=== PATIENT | female | born 1955 | race Caucasian/White ===

== ENCOUNTER 2018-02-10 09:37 | Inpatient (IN) ==
[2018-02-10] MEDS ORDERED: Morphine Inj 4 MG/ML Vial IV.PUSH ONE ×2 (13:05→14:48)
[2018-02-10] MEDS ORDERED: Ketorolac Inj 30 MG/ML (IVP) Vial IV.PUSH ONE (13:05)
--- NOTE | 2018-02-10 13:11 | ED ---
HPI General Chief Complaint: Abdominal Pain Stated Complaint: Medical Time Seen by Provider: 02/10/18 13:05 Source: patient Mode of arrival: ambulatory Limitations: no limitations History of Present Illness HPI narrative: The patient is a 62-year-old female who presents to the emergency department via private vehicle for abdominal pain. The patient has a history of recurrent diverticulitis, was experiencing 2 episodes per year. However, the patient has had multiple episodes over the last several months. The patient is scheduled for colonoscopy with Dr. Méndez on March 01 and possible future partial colectomy by Dr. Wild in March. However, the patient notes increasing abdominal pain over the last 2 days located in left lower quadrant, rating to the suprapubic region, increasing, and associated nausea and vomiting. The patient is concerned about possible perforation and abscess. She does note subjective fever last night which is currently resolved. Last bowel movement was this morning, normal. The patient denies any dysuria, frequency, or urgency. Symptoms are moderate, exacerbated by palpation, there are no current alleviating factors. MD complaint: abdominal pain Onset (ago): day(s) Pain Consistency: constant Location: LLQ Severity: moderate Severity scale (1-10): 7 Quality: aching Radiation: suprapubic Migration to: no migration Relieving factors: nothing Exacerbating factors: nothing Context: history of similar episodes Associated symptoms: nausea, vomiting and fever Related Data Home Medications Medication Instructions Recorded Confirmed No Known Home Medications 02/10/18 02/10/18 Allergies Allergy/AdvReac Type Severity Reaction Status Date / Time No Known Allergies Allergy Verified 02/10/18 13:44 Review of Systems Except as stated in HPI: all other systems reviewed are negative Constitutional Denies fever(s) Cardiovascular Denies chest pain Gastrointestinal Reports abdominal pain, Denies diarrhea, Reports nausea and Reports vomiting Genitourinary Denies dysuria [facility] Medical History Medical History Diverticula of intestine (Acute) H/O: hysterectomy (Acute) Social History Social History Substance History: No History of Abuse Smoking Status: Never smoker How Often Do You Have a Drink Containing Alcohol: Never Recent Travel in [facility] within the Last 8 Weeks: No Recent Out of Country Travel within the Last 8 Weeks: No Exam Narrative Exam Narrative: GENERAL: Awake, alert, pleasant 62-year-old female who appears her stated age and is in no acute respiratory distress. SKIN: Focused skin assessment warm/dry. HEAD: Atraumatic. Normocephalic. EYES: No injection or drainage. ENT: No nasal bleeding or discharge. Mucous membranes pink and moist. NECK: Trachea midline. No JVD. CARDIOVASCULAR: Regular rate and rhythm. No murmur appreciated. RESPIRATORY: No accessory muscle use. Clear to auscultation. Breath sounds equal bilaterally. GASTROINTESTINAL: Abdomen soft, tender to palpation left lower quadrant and suprapubic. No guarding or rigidity. MUSCULOSKELETAL: No obvious deformities. No clubbing. No cyanosis. No edema. NEUROLOGICAL: Awake and alert. No obvious cranial nerve deficits. Motor grossly within normal limits. Normal speech. PSYCHIATRIC: Appropriate mood and affect; insight and judgment normal. Course Initial Documented Vital Signs Temperature 98.2 F 02/10/18 09:41 Pulse Rate 77 02/10/18 09:41 Respiratory Rate 17 02/10/18 09:41 Blood Pressure 138/71 02/10/18 09:41 Pulse Oximetry 98 02/10/18 09:41 Last Documented Vital Signs Temperature 98.2 F 02/10/18 09:41 Pulse Rate 77 02/10/18 09:41 Respiratory Rate 17 02/10/18 09:41 Blood Pressure 138/71 02/10/18 09:41 Pulse Oximetry 98 02/10/18 09:41 Medical Decision Making MDM Narrative Medical decision making narrative: IV was established, labs are drawn and sent, and the patient was placed on cardiac telemetry monitoring and continuous pulse oximetry monitoring. The patient was a ophthalmic tech Toradol, morphine, Zofran, and placed on IV fluids. CT of the abdomen and pelvis with IV and oral contrast was obtained to evaluate for possible diverticular abscess/perforation. The patient's white count is unremarkable. Lactic acid is normal. However, CT the abdomen and pelvis reveals diverticulitis and possible abscess measuring up to 3 cm. The patient has recurrent diverticulitis, possibility includes abscess that is never healed with returning symptoms. Therefore, the patient will be placed on IV antibiotics and admitted. The patient may benefit from evaluation from her general surgeon, Dr. Wild. The patient agrees and understands and is comfortable with this plan of care. I discussed the patient with Dr. Jones who agrees with admission. Differential Diagnosis Differential Diagnosis: Differential diagnosis includes diverticulitis, diverticular abscess, perforation, pyelonephritis, sigmoid volvulus, atypical appendicitis, nephrolithiasis, hydronephrosis. Lab Data Lab results reviewed: Yes I reviewed the patient's lab results. Lab results narrative: Laboratory evaluation is unremarkable. White count and lactic acid are normal. Result diagrams: 02/10/18 13:30 02/10/18 13:30 Lab Results 02/10/18 02/10/18 02/10/18 Range/Units 13:30 13:30 13:30 WBC 9.9 (4.0-11.0) th/mm3 RBC 4.28 (4.00-5.30) mil/mm3 Hgb 13.3 (11.6-15.3) gm/dL Hct 38.4 (35.0-46.0) % MCV 89.8 (80.0-100.0) fL MCH 31.1 (27.0-34.0) pg MCHC 34.7 (32.0-36.0) % RDW 13.9 (11.6-17.2) % Plt Count 253 (150-450) th/mm3 MPV 8.0 (7.0-11.0) fL Neut % (Auto) 66.8 (16.0-70.0) % Lymph % (Auto) 25.6 (9.0-44.0) % [place] % (Auto) 5.1 (0.0-8.0) % Eos % (Auto) 1.4 (0.0-4.0) % Baso % (Auto) 1.1 (0.0-2.0) % Neut # (Auto) 6.6 (1.8-7.7) th/mm3 Lymph # (Auto) 2.5 (1.0-4.8) th/mm3 [place] # (Auto) 0.5 (0.0-0.9) th/mm3 Eos # (Auto) 0.1 (0.0-0.4) th/mm3 Baso # (Auto) 0.1 (0.0-0.2) th/mm3 WBC Differential . Differential Comment Auto diff final Sodium 140 (136-145) meq/L Potassium 3.7 (3.5-5.1) meq/L Chloride 105 (98-107) meq/L Carbon Dioxide 30.4 (21.0-32.0) meq/L Anion Gap 5 (5-15) meq/L BUN 11 (7-18) mg/dL Creatinine 0.89 (0.50-1.00) mg/dL Estimated GFR 64 L (>89) mL/min Random Glucose 97 (74-106) mg/dL Lactic Acid 0.7 (0.4-2.0) mmol/L Calcium 8.9 (8.5-10.1) mg/dL Total Bilirubin 0.6 (0.2-1.0) mg/dL AST 28 (15-37) U/L ALT 34 (10-53) U/L Alkaline Phosphatase 143 H (45-117) U/L Total Protein 8.3 H (6.4-8.2) g/dL Albumin 3.5 (3.4-5.0) g/dL Lipase 87 (73-393) U/L Urine Color (Yellw/Straw) Urine Clarity (Clear) Urine pH (5.0-8.5) Ur Specific [place] (1.002-1.035) Urine Protein (Neg-Trace) mg/dL Urine Glucose (UA) (Negative) mg/dL Urine Ketones (Negative) mg/dL Urine Occult Blood (Negative) Urine Nitrate (Negative) Urine Bilirubin (Negative) Urine Urobilinogen (Less than 2) mg/dL Ur Leukocyte Esterase (Negative) Urine RBC (0-3) /hpf Urine WBC (0-5) /hpf Ur Squamous Epith Cells (0-5) /hpf Urine Bacteria (None) /hpf Urine Mucus (Occasional) /lpf Micro UA Comment Urine Culture Comments 02/10/18 Range/Units 14:30 WBC (4.0-11.0) th/mm3 RBC (4.00-5.30) mil/mm3 Hgb (11.6-15.3) gm/dL Hct (35.0-46.0) % MCV (80.0-100.0) fL MCH (27.0-34.0) pg MCHC (32.0-36.0) % RDW (11.6-17.2) % Plt Count (150-450) th/mm3 MPV (7.0-11.0) fL Neut % (Auto) (16.0-70.0) % Lymph % (Auto) (9.0-44.0) % [place] % (Auto) (0.0-8.0) % Eos % (Auto) (0.0-4.0) % Baso % (Auto) (0.0-2.0) % Neut # (Auto) (1.8-7.7) th/mm3 Lymph # (Auto) (1.0-4.8) th/mm3 [place] # (Auto) (0.0-0.9) th/mm3 Eos # (Auto) (0.0-0.4) th/mm3 Baso # (Auto) (0.0-0.2) th/mm3 WBC Differential Differential Comment Sodium (136-145) meq/L Potassium (3.5-5.1) meq/L Chloride (98-107) meq/L Carbon Dioxide (21.0-32.0) meq/L Anion Gap (5-15) meq/L BUN (7-18) mg/dL Creatinine (0.50-1.00) mg/dL Estimated GFR (>89) mL/min Random Glucose (74-106) mg/dL Lactic Acid (0.4-2.0) mmol/L Calcium (8.5-10.1) mg/dL Total Bilirubin (0.2-1.0) mg/dL AST (15-37) U/L ALT (10-53) U/L Alkaline Phosphatase (45-117) U/L Total Protein (6.4-8.2) g/dL Albumin (3.4-5.0) g/dL Lipase (73-393) U/L Urine Color Yellow (Yellw/Straw) Urine Clarity Hazy H (Clear) Urine pH 5.0 (5.0-8.5) Ur Specific [place] 1.020 (1.002-1.035) Urine Protein Negative (Neg-Trace) mg/dL Urine Glucose (UA) Negative (Negative) mg/dL Urine Ketones Negative (Negative) mg/dL Urine Occult Blood Negative (Negative) Urine Nitrate Negative (Negative) Urine Bilirubin Negative (Negative) Urine Urobilinogen 2.0 H (Less than 2) mg/dL Ur Leukocyte Esterase Negative (Negative) Urine RBC 7 H (0-3) /hpf Urine WBC 4 (0-5) /hpf Ur Squamous Epith Cells 10 (0-5) /hpf Urine Bacteria Rare H (None) /hpf Urine Mucus Moderate H (Occasional) /lpf Micro UA Comment Culture not ind Urine Culture Comments Culture not ind Imaging Data Radiologist's impression: Abdomen/Pelvis CT 02/10/18 13:05 CONCLUSION: Diverticulitis with possible abscess Discharge Plan Discharge Disposition Patient Disposition: 30 Still Patient Discharge Condition Condition: Stable Discharge Details Diagnosis: Diverticulitis of intestine with abscess without bleeding Physicians Team ED Provider: Ted Jaime Primary Care Provider: Christine Hare Rxs /Orders / Referrals /Forms Prescriptions: No Action No Known Home Medications RF: 0 Status ED Status: Pending Admission
[2018-02-10] MEDS ORDERED: Sod Chloride 0.9% Inj 1,000 ML IV.CONT SCH (13:15)
[2018-02-10] MEDS ORDERED: Diatrizoate Meglum/Diatrizoate Sod Liq 9 ML UDC PO ONE (13:45)
[2018-02-10 13:56] LABS: Baso # (Auto) 0.1 th/mm3 (0.0-0.2); Baso % (Auto) 1.1 % (0.0-2.0); Eos # (Auto) 0.1 th/mm3 (0.0-0.4); Eos % (Auto) 1.4 % (0.0-4.0); Hematocrit 38.4 % (35.0-46.0); Hemoglobin 13.3 gm/dL (11.6-15.3); Lymph # (Auto) 2.5 th/mm3 (1.0-4.8); Lymph % (Auto) 25.6 % (9.0-44.0); Mean Corpuscular HGB Conc 34.7 % (32.0-36.0); Mean Corpuscular Hemoglobin 31.1 pg (27.0-34.0); Mean Corpuscular Volume 89.8 fL (80.0-100.0); Mono # (Auto) 0.5 th/mm3 (0.0-0.9); Mono % (Auto) 5.1 % (0.0-8.0); Neut # (Auto) 6.6 th/mm3 (1.8-7.7); Neut % (Auto) 66.8 % (16.0-70.0); Platelet Count 253 th/mm3 (150-450); Red Blood Count 4.28 mil/mm3 (4.00-5.30); Red Cell Distribution Width 13.9 % (11.6-17.2); White Blood Count 9.9 th/mm3 (4.0-11.0)
[2018-02-10 14:13] LABS: Alanine Aminotransferase 34 U/L (10-53); Albumin 3.5 g/dL (3.4-5.0); Anion Gap 5 meq/L (5-15); Aspartate Aminotransferase 28 U/L (15-37); Blood Urea Nitrogen 11 mg/dL (7-18); Calcium 8.9 mg/dL (8.5-10.1); Carbon Dioxide 30.4 meq/L (21.0-32.0); Chloride 105 meq/L (98-107); Glomerular Filtration Rate 64 mL/min (>89); Glucose,Random 97 mg/dL (74-106); Lipase 87 U/L (73-393); Potassium 3.7 meq/L (3.5-5.1); Sodium 140 meq/L (136-145)
[2018-02-10 14:15] LABS: Alkaline Phosphatase 143 U/L (45-117); Total Protein 8.3 g/dL (6.4-8.2)
[2018-02-10 14:59] LABS: Bacteria,Urine Rare /hpf; Bilirubin,Urine Negative (Negative); Clarity,Urine Hazy (Clear); Color,Urine Yellow (Yellw/Straw); Glucose,Urine (UA) Negative (Negative); Leukocyte Esterase,Urine Negative (Negative); Mucus,Urine Moderate /lpf (Occasional); Nitrite,Urine Negative (Negative); Squamous Epithelial Cell,Urine 10 /hpf (0-5)
--- NOTE | 2018-02-10 15:23 | CT ---
EXAM DATE: 02/10/2018 3:13 PM EDT AGE/SEX: 62 years / Female INDICATIONS: History of diverticulitis, now having left lower abdomen pain for two days. CLINICAL DATA: This is the patient's initial encounter. Patient reports that signs and symptoms have been present for 2 days and indicates a pain score of 6/10. MEDICAL/SURGICAL HISTORY: Diverticulitis. None. ORAL CONTRAST: Prescribed oral contrast ingested. RADIATION DOSE: 7.04 CTDI (mGy) COMPARISON: POI, CT ABDOMEN AND PELVIS W/ CONTRAST, 12/11/2017. . TECHNIQUE: Multiple contiguous axial images were obtained through the abdomen and pelvis following b olus infusion of 95 ml Omnipaque 350 (iohexol) nonionic water-soluble contrast as a single exam dos e. Prescribed oral contrast ingested. Using automated exposure control and adjustment of the mA and/ or kV according to patient size, radiation dose was kept as low as reasonably achievable to obtain op timal diagnostic quality images. DICOM format image data is available electronically for review and comparison. FINDINGS: Lower Lungs: The visualized lower lungs are clear. Liver: The liver has a homogeneous density without space-occupying lesion. There is no dilation of th e biliary tree. The patient is status post cholecystectomy. There is mild hepatic steatosis. Spleen: Homogeneous density without enlargement. Pancreas: Unremarkable without mass or calcification. Kidneys: Normal in size and shape. No evidence of mass or hydronephrosis. Adrenal Glands: Unremarkable. Aorta: The aorta and proximal iliac vessels are grossly unremarkable without aneurysmal dilation. Bowel/Mesentery: There is focal bowel wall thickening and surrounding inflammatory change involving the proximal sigmoid colon. This extends for approximately 5 to 6 cm distance. There are multiple div erticuli in this area as well as several minute collections of gas which may be extraluminal. In rosanna tion there is a small apparent fluid collection along the inferior right side of the sigmoid colon. T his is best seen on axial image #72. This measures up to approximately 3 cm in diameter. Abdominal Wall: Intact. Retroperitoneum: No evidence of adenopathy in the retrocrural, para-aortic, or deep pelvic regions. Bladder: Contours are smooth. Reproductive Organs: No abnormal masses or calcifications seen. Inguinal: The inguinal region is unremarkable without evidence of adenopathy. Bony Structures: Unremarkable. 1. Findings characteristic of acute diverticulitis involving the proximal sigmoid colon with wall th ickening and inflammatory change. There is a adjacent fluid collection which could represent early ab scess formation. There is no wall or gas bubbles within this region. 2. Mild hepatic steatosis. 3. Status post cholecystectomy. Electronically signed by: Nghia Zimmer MD 02/10/2018 3:22 PM EDT
[2018-02-10] MEDS ORDERED: Ciprofloxacin 400 MG/200 ML 400 MG/200 ML PIGGYBACK IV.SIG ONE (15:30)
--- NOTE | 2018-02-10 16:35 | P.HPIM ---
History of Present Illness Service: [facility] Primary Care Physician: Christine Hare DO Chief Complaint: Abdominal pain History of Present Illness: 62-year-old female with a medical history significant for recurrent diverticulitis. Patient reports she used to have bouts of diverticulitis about once or twice a year. However for the past few months she has been having recurrent episodes. She has been followed by GI and previously consulted with general surgery, Dr. Wild. In fact there were plans for surgery in March. However overnight, the patient woke up in severe left lower quadrant pain with associated nausea and vomiting. She also report fevers and chills last night. CT of the abdomen was done in the emergency room consistent with diverticulitis with possible early abscess. Currently the patient reports abdominal pain is improved. Nausea have significantly improved. - Diagnosis (1) Diverticulitis of intestine with abscess without bleeding Plans for Post Hospital Care: Home Review of Systems All other systems reviewed negative except as stated in HPI PMFSH - History History Provided By: Patient - Medical History Medical History: Medical History (Last Updated 02/10/18 @ 13:52 by Rosa Maria Ramirez) Diverticula of intestine H/O: hysterectomy - Surgical History Surgical History: Surgical History (Last Updated 02/10/18 @ 17:00 by Cristina Vieira MD) History of cholecystectomy - Family History Family History: Family History (Last Updated 02/10/18 @ 17:00 by Cristina Vieira MD) Other Family history non-contributory - Tobacco History Smoking Status: Never smoker - Alcohol History How Often Do You Have a Drink Containing Alcohol: Never - Substance Use History Substance History: No History of Abuse - Travel History Recent Travel in the [facility] [place] Within the Last 8 Weeks: No Recent Travel Out of the Country Within the Last 8 Weeks: No - Immunization History Tetanus Immunization: <5 Years Medications and Allergies Active Medications: Active Medications Sodium Chloride (Ns Inj) 1,000 mls @ 125 mls/hr IV.CONT .Q8H LUIS CARLOS Stop: 02/10/18 21:14 Last Admin: 02/10/18 13:28 Dose: 125 mls/hr Lactated Ringer's (Lr 1000 Ml Inj) 1,000 mls @ 100 mls/hr IV.CONT .Q10H LUIS CARLOS Sodium Chloride (Ns Flush) 2 ml IV.FLUSH PRN PRN PRN Reason: FLUSH AFTER USING IV ACCESS Temazepam (Restoril) 15 mg PO HS PRN PRN Reason: INSOMNIA Allergies Allergy/AdvReac Type Severity Reaction Status Date / Time No Known Allergies Allergy Verified 02/10/18 13:44 Home Medications Medication Instructions Recorded Confirmed Type No Known Home Medications 02/10/18 02/10/18 History Exam Vital signs: Vital Signs 02/10/18 09:41 Temperature 98.2 F Pulse Rate 77 Respiratory Rate 17 Blood Pressure 138/71 Pulse Oximetry 98 Intake & Output 02/09/18 02/10/18 02/10/18 18:59 06:59 18:59 Weight 72.575 kg Narrative: CONSTITUTIONAL/GENERAL: This is an adequately nourished patient, in no apparent distress. Vital signs reviewed SKIN: No jaundice, rashes, or concerning lesions. Not diaphoretic. HEAD: Atraumatic. Normocephalic. EYES: Pupils equal and round and reactive. Extra ocular motions are intact. No scleral icterus. No injection or drainage. ENT: Hearing grossly normal. Nose without drainage. Throat without visible erythema, exudates, masses, or lesions. NECK: Trachea midline. Neck is supple, non-tender. No palpable thyroid enlargement or nodularity. CARDIOVASCULAR: Normal rate and regular rhythm without murmurs, gallops, or rubs. No JVD. Peripheral pulses 2+ and symmetric. RESPIRATORY/CHEST: Symmetric, unlabored respirations. Breath sounds equal and clear to auscultation bilaterally. No wheezes, crackles, rales, or rhonchi. GASTROINTESTINAL: Abdomen soft, non-distended. Mild tenderness to deep palpation more notable on the left lower quadrant. MUSCULOSKELETAL: Extremities without clubbing, cyanosis, or edema. No joint tenderness or effusion noted. No calf tenderness. No mottling or clubbing. NEUROLOGICAL: Awake and alert. Motor and sensory grossly within normal limits. Follows commands. Move all extremities spontaneously. No focal deficits. PSYCHIATRIC: No obvious mood problems. No apparent hallucinations or other psychotic thought process. Results - Labs CBC & Chem 7: 02/10/18 13:30 02/10/18 13:30 Labs: Short CBC 02/10/18 Range/Units 13:30 WBC 9.9 (4.0-11.0) th/mm3 Hgb 13.3 (11.6-15.3) gm/dL Hct 38.4 (35.0-46.0) % Plt Count 253 (150-450) th/mm3 BMP 02/10/18 13:30 Sodium 140 Potassium 3.7 Chloride 105 Carbon Dioxide 30.4 BUN 11 Creatinine 0.89 Calcium 8.9 Liver Function 02/10/18 Range/Units 13:30 Total Bilirubin 0.6 (0.2-1.0) mg/dL AST 28 (15-37) U/L ALT 34 (10-53) U/L Alkaline Phosphatase 143 H (45-117) U/L Albumin 3.5 (3.4-5.0) g/dL Urine 02/10/18 Range/Units 14:30 Urine Color Yellow (Yellw/Straw) Urine Clarity Hazy H (Clear) Urine pH 5.0 (5.0-8.5) Ur Specific [place] 1.020 (1.002-1.035) Urine Protein Negative (Neg-Trace) mg/dL Urine Glucose (UA) Negative (Negative) mg/dL - Imaging Impressions Abdomen/Pelvis CT 02/10/18 13:05 CONCLUSION: Caprini VTE Risk Assessment Caprini VTE Risk Assessment: No/Low Risk (score <= 1) Caprini Risk Assessment Model: Point Value = 1 Point Value = 2 Point Value = 3 Point Value = 5 Age 41-60 Minor surgery BMI > 25 kg/m2 Swollen legs Varicose veins or History of unexplained or recurrent spontaneous Oral contraceptives or hormone replacement Sepsis (< 1 month) Serious lung disease, including pneumonia (< 1 month) Abnormal pulmonary function Acute myocardial infarction Congestive heart failure (< 1 month) History of inflammatory bowel disease Medical patient at bed rest Age 61-74 Arthroscopic surgery Major open surgery (> 45 min) Laparoscopic surgery (> 45 min) Malignancy Confined to bed (> 72 hours) Immobilizing plaster cast Central venous access Age >= 75 History of VTE Family history of VTE Factor V Leiden Prothrombin [id number] Lupus anticoagulant Anticardiolipin antibodies Elevated serum homocysteine Heparin-induced thrombocytopenia Other congenital or acquired thrombophilia Stroke (< 1 month) Elective arthroplasty Hip, pelvis, or leg fracture Acute spinal cord injury (< 1 month) Prophylaxis Regimen: Total Risk Factor Score Risk Level Prophylaxis Regimen 0-1 Low Early ambulation 2 Moderate Order ONE of the following: *Sequential Compression Device (SCD) *Heparin 5000 units SQ BID 3-4 Higher Order ONE of the following medications: *Heparin 5000 units SQ TID *Enoxaparin/Lovenox 40 mg SQ daily (WT < 150 kg, CrCl > 30 mL/min) *Enoxaparin/Lovenox 30 mg SQ daily (WT < 150 kg, CrCl > 10-29 mL/min) *Enoxaparin/Lovenox 30 mg SQ BID (WT < 150 kg, CrCl > 30 mL/min) AND/OR *Sequential Compression Device (SCD) 5 or more Highest Order ONE of the following medications: *Heparin 5000 units SQ TID (Preferred with Epidurals) *Enoxaparin/Lovenox 40 mg SQ daily (WT < 150 kg, CrCl > 30 mL/min) *Enoxaparin/Lovenox 30 mg SQ daily (WT < 150 kg, CrCl > 10-29 mL/min) *Enoxaparin/Lovenox 30 mg SQ BID (WT < 150 kg, CrCl > 30 mL/min) AND *Sequential Compression Device (SCD) Assessment and Plan - Assessment (1) Diverticulitis of intestine with abscess without bleeding Code(s): K57.80 - Diverticulitis of intestine, part unspecified, with perforation and abscess without bleeding Status: Acute - Plan 62-year-old female with recurrent diverticulitis. Symptoms are becoming more frequent and more severe. Recurrent diverticulitis with possible early abscess on abdominal CT: - Continue IV antibiotics with ciprofloxacin and Flagyl. - Supportive care with IV fluid. Pain control. Keep n.p.o. - Consult general surgery. Patient known to Dr. Wild. DVT PPx: SCDs. (1) Diverticulitis of intestine with abscess without bleeding Qualifiers: Diverticulitis site: large intestine Qualified Code(s): K57.20 - Diverticulitis of large intestine with perforation and abscess without bleeding
[2018-02-10] MEDS ORDERED: Temazepam 15 MG Capsule PO PRN (21:00)
[2018-02-11] MEDS ORDERED: Acetaminophen 325 MG Tablet PO ONE (00:10)
[2018-02-11] MEDS: Ciprofloxacin 400 MG/200 ML 400 MG/200 ML PIGGYBACK IV.SIG SCH ×2 (04:01→16:02)
[2018-02-11 08:03] LABS: Hemoglobin 11.6 gm/dL (11.6-15.3); Mean Corpuscular HGB Conc 34.1 % (32.0-36.0); Mean Corpuscular Hemoglobin 30.8 pg (27.0-34.0); Mean Corpuscular Volume 90.4 fL (80.0-100.0); Platelet Count 207 th/mm3 (150-450); Red Blood Count 3.76 mil/mm3 (4.00-5.30); Red Cell Distribution Width 13.6 % (11.6-17.2); White Blood Count 4.1 th/mm3 (4.0-11.0)
[2018-02-11 08:27] LABS: Calcium 8.5 mg/dL (8.5-10.1); Carbon Dioxide 28.2 meq/L (21.0-32.0); Potassium 3.7 meq/L (3.5-5.1)
--- NOTE | 2018-02-11 10:07 | P.CONGS ---
[facility] Gen Surgery Consult Note Consult date: 02/11/18 Requesting physician: Cristina Vieira Narrative: This is a 62 year old female known to Dr. Wild and is scheduled for elective sigmoid resection in March for recurrent diverticulitis. Over the last two years she has have 1-2 episodes a year but since October of this year she has had multiple episodes. She recently finished a regiment of Cipro and Flagyl and was feeling okay. She is scheduled for a colonoscopy March [address] Luna. The patient woke up Thursday night with sudden onset of LEFT lower quadrant abdominal pain with one episode of associated nausea and vomiting. The patient denies fevers or chills during this episode. She has a normal WBC. A CT abdomen/pelvis was obtained which shows diverticulitis and an early abscess. A General Surgery consultation has been requested. <Rhea Verduzco - Last Filed: 02/12/18 11:51> Review of Systems Constitutional: Denies body ache(s), Denies chills, Denies fever(s) Eyes: Denies blurry vision Ears, Nose, Mouth, and Throat: Denies poor balance Cardiovascular: Denies chest pain, Denies chest pain at rest, Denies chest pain with activity Respiratory: Denies chest congestion, Denies cough Gastrointestinal: Reports abdominal pain, Reports nausea, Reports vomiting Genitourinary: Denies pelvic pain Musculoskeletal: Denies abnormal walking, Denies body aches Skin/Breast: Denies itching, Denies lesions, Denies redness Neurologic: Denies headache(s), Denies localized weakness Psychiatric: Denies anxiety, Denies depression Endocrine: Denies cold intolerance, Denies heat intolerance Hematologic/Lymphatic: Denies easy bleeding Allergic/Immunologic: Denies GI upset with certain foods <Rhea Verduzco - Last Filed: 02/12/18 11:51> PMFSH - History History Provided By: Patient - Medical History Medical History: Medical History (Last Reviewed 02/12/18 @ 11:52 by QUINTON Conti) Diverticula of intestine H/O: hysterectomy - Surgical History Surgical History: Surgical History (Last Reviewed 02/12/18 @ 11:52 by QUINTON Conti) History of cholecystectomy - Family History Family History: Family History (Last Reviewed 02/12/18 @ 11:52 by QUINTON Conti) Other Family history non-contributory - Tobacco History Second Hand Smoke Exposure: No Tobacco Use In Past 30 Days: No Smoking Status: Never smoker - Alcohol History How Often Do You Have a Drink Containing Alcohol: Never - Substance Use History Substance History: No History of Abuse - Travel History Recent Travel in the [place] Within the Last 8 Weeks: No Recent Travel Out of the Country Within the Last 8 Weeks: No - Immunization History Tetanus Immunization: <5 Years <Rhea Verduzco - Last Filed: 02/12/18 11:51> - Medical History Medical History: Medical History (Last Reviewed 02/17/18 @ 20:26 by Kentrell Wild MD) Diverticula of intestine H/O: hysterectomy - Surgical History Surgical History: Surgical History (Last Reviewed 02/17/18 @ 20:26 by Kentrell Wild MD) History of cholecystectomy - Family History Family History: Family History (Last Reviewed 02/17/18 @ 20:25 by Kentrell Wild MD) Other Family history non-contributory <Kentrell Wild - Last Filed: 02/17/18 20:27> Medications and Allergies Active Medications: Active Medications Lactated Ringer's (Lr 1000 Ml Inj) 1,000 mls @ 100 mls/hr IV.CONT .Q10H [facility] Last Admin: 02/11/18 04:01 Dose: 100 mls/hr Ciprofloxacin/Dextrose (Cipro 400 Mg/200 Ml Inj) 400 mg in 200 mls @ 200 mls/ hr IV.SIG Q12H [facility] Last Infusion: 02/11/18 07:36 Dose: Infused Metronidazole/Sodium Chloride (Flagyl 500 Mg Inj) 100 mls @ 100 mls/hr IV.SIG Q8H [facility] Last Infusion: 02/11/18 08:31 Dose: Infused Morphine Sulfate (Morphine Inj) 2 mg IV.PUSH Q3H PRN PRN Reason: PAIN SCALE 6 TO 10 Sodium Chloride (Ns Flush) 2 ml IV.FLUSH PRN PRN PRN Reason: FLUSH AFTER USING IV ACCESS Temazepam (Restoril) 15 mg PO HS PRN PRN Reason: INSOMNIA <Rhea Verduzco - Last Filed: 02/12/18 11:51> <Kentrell Wild - Last Filed: 02/17/18 20:27> Allergies Allergy/AdvReac Type Severity Reaction Status Date / Time No Known Allergies Allergy Verified 02/10/18 13:44 Home Medications Medication Instructions Recorded Confirmed Type No Known Home Medications 02/10/18 02/10/18 History Exam Vital signs: Vital Signs 02/10/18 20:00 02/11/18 00:00 02/11/18 00:10 Temperature 97.5 F L 97.5 F L Pulse Rate 57 L 59 L Respiratory Rate 16 16 Blood Pressure 104/55 L 95/50 L Pulse Oximetry 95 95 95 02/11/18 04:00 02/11/18 08:00 Temperature 97.8 F 98.0 F Pulse Rate 53 L 56 L Respiratory Rate 16 15 Blood Pressure 95/56 L 93/56 L Pulse Oximetry 97 94 L Intake & Output 02/10/18 02/11/18 02/11/18 18:59 06:59 18:59 Intake Total 1100 / 1100 1600 / 1600 Balance 1100 / 1100 1600 / 1600 Weight 72.575 kg 78.4 kg Intake: IV 1100 / 1100 1600 / 1600 LR 1000 mL Inj 1,000 ML @ 100 1000 / 1000 mls/hr IV.CONT .Q10H [facility] Rx#: [id number] NS Inj 1,000 ML @ 125 mls/hr IV 1000 / 1000 .CONT .Q8H [facility] Rx#:[id number] Cipro 400 MG/200 ML Inj 400 mg 200 / 200 In 200 ml @ 200 mls/hr IV.SIG Q12H [facility] Rx#:[id number] Flagyl 500 MG Inj 100 ML @ 100 100 / 100 100 / 100 mls/hr IV.SIG Q8H [facility] Rx#: [id number] Other: # Voids 1 Date of Last Bowel Movement 02/10/18 Narrative: GENERAL: Very pleasant female resting in bed in no acute distress. SKIN: Warm and dry. HEAD: Atraumatic. Normocephalic. EYES: Pupils equal and round. No scleral icterus. No injection or drainage. ENT: No nasal bleeding or discharge. Mucous membranes pink and moist. NECK: Trachea midline. CARDIOVASCULAR: Regular rate and rhythm. RESPIRATORY: No accessory muscle use. Clear to auscultation. Breath sounds equal bilaterally. GASTROINTESTINAL: Abdomen soft, nondistended. Mild LLQ tenderness with palpation. MUSCULOSKELETAL: Extremities without clubbing, cyanosis, or edema. No obvious deformities. NEUROLOGICAL: Awake and alert. No obvious cranial nerve deficits. Motor grossly within normal limits. Five out of 5 muscle strength in the arms and legs. Normal speech. PSYCHIATRIC: Appropriate mood and affect; insight and judgment normal. <Rhea Verduzco - Last Filed: 02/12/18 11:51> Results - Labs 02/12/18 10:27 02/12/18 10:27 Abnormal lab results 02/10/18 02/10/18 02/11/18 Range/Units 13:30 14:30 07:06 RBC 3.76 L (4.00-5.30) mil/mm3 Hct 34.0 L (35.0-46.0) % Estimated GFR 64 L (>89) mL/min Alkaline Phosphatase 143 H (45-117) U/L Total Protein 8.3 H (6.4-8.2) g/dL Urine Clarity Hazy H (Clear) Urine Urobilinogen 2.0 H (Less than 2) mg/dL Urine RBC 7 H (0-3) /hpf Urine Bacteria Rare H (None) /hpf Urine Mucus Moderate H (Occasional) /lpf 02/11/18 Range/Units 07:06 RBC (4.00-5.30) mil/mm3 Hct (35.0-46.0) % Estimated GFR 74 L (>89) mL/min Alkaline Phosphatase (45-117) U/L Total Protein (6.4-8.2) g/dL Urine Clarity (Clear) Urine Urobilinogen (Less than 2) mg/dL Urine RBC (0-3) /hpf Urine Bacteria (None) /hpf Urine Mucus (Occasional) /lpf Diabetes panel 02/10/18 02/11/18 Range/Units 13:30 07:06 Sodium 140 142 (136-145) meq/L Potassium 3.7 3.7 (3.5-5.1) meq/L Chloride 105 106 (98-107) meq/L Carbon Dioxide 30.4 28.2 (21.0-32.0) meq/L BUN 11 11 (7-18) mg/dL Creatinine 0.89 0.78 (0.50-1.00) mg/dL Calcium 8.9 8.5 (8.5-10.1) mg/dL AST 28 (15-37) U/L ALT 34 (10-53) U/L Alkaline Phosphatase 143 H (45-117) U/L Total Protein 8.3 H (6.4-8.2) g/dL Albumin 3.5 (3.4-5.0) g/dL Calcium panel 02/10/18 02/11/18 Range/Units 13:30 07:06 Calcium 8.9 8.5 (8.5-10.1) mg/dL Albumin 3.5 (3.4-5.0) g/dL Pituitary panel 02/10/18 02/11/18 Range/Units 13:30 07:06 Sodium 140 142 (136-145) meq/L Potassium 3.7 3.7 (3.5-5.1) meq/L Chloride 105 106 (98-107) meq/L Carbon Dioxide 30.4 28.2 (21.0-32.0) meq/L BUN 11 11 (7-18) mg/dL Creatinine 0.89 0.78 (0.50-1.00) mg/dL Calcium 8.9 8.5 (8.5-10.1) mg/dL Adrenal panel 02/10/18 02/11/18 Range/Units 13:30 07:06 Sodium 140 142 (136-145) meq/L Potassium 3.7 3.7 (3.5-5.1) meq/L Chloride 105 106 (98-107) meq/L Carbon Dioxide 30.4 28.2 (21.0-32.0) meq/L BUN 11 11 (7-18) mg/dL Creatinine 0.89 0.78 (0.50-1.00) mg/dL Calcium 8.9 8.5 (8.5-10.1) mg/dL Total Bilirubin 0.6 (0.2-1.0) mg/dL AST 28 (15-37) U/L ALT 34 (10-53) U/L Alkaline Phosphatase 143 H (45-117) U/L Total Protein 8.3 H (6.4-8.2) g/dL Albumin 3.5 (3.4-5.0) g/dL All other labs normal. - Imaging CT scan - abdomen: report reviewed, image reviewed <Rhea Verduzco - Last Filed: 02/12/18 11:51> - Labs 02/13/18 07:34 02/13/18 07:36 All other labs normal. <Kentrell Wild - Last Filed: 02/17/18 20:27> Assessment and Plan - Plan 62 year old female with recurrent diverticulitis -IR to evaluate for possible drainage and drain placement -Continue antibiotics -NPO -IVF -Monitor for fevers -Will attempt non surgical plans for now and ancipitate surgery in the future as planned -Thank you for this consult; We will continue to follow Discussed Condition With: Dr. Wild Mrs. Martinez <Rhea Verduzco - Last Filed: 02/12/18 11:51> - Assessment (1) Diverticulitis of intestine with abscess without bleeding Code(s): K57.80 - Diverticulitis of intestine, part unspecified, with perforation and abscess without bleeding Status: Acute Qualifiers: Diverticulitis site: large intestine Qualified Code(s): K57.20 - Diverticulitis of large intestine with perforation and abscess without bleeding - Plan patient seen at bedside increased pain, found to have small fluid collection and acute flare of diverticulitis will plan for IR drain discussed repeat attempt for non op mgnt discussed with Dr. Salinas he will delay colonoscopy - Attending Attestation The exam, history, and the medical decision-making described in the above note were completed with the assistance of the mid-level provider. I reviewed and agree with the findings presented. I attest that I had a [id number] encounter with the patient on the same day, and personally performed and documented my assessment and findings in the medical record. <Kentrell Wild - Last Filed: 02/17/18 20:27>
[2018-02-11 14:16] LABS: Prothrombin Time 10.3 sec (9.8-11.6)
[2018-02-11] MEDS ORDERED: fentaNYL Citrate Inj 100 MCG/2 ML Ampul ONE ×2 (14:58→15:57)
--- NOTE | 2018-02-11 15:12 | P.PN ---
Subjective Interval history: no nausea or vomiting + flatus still with left lower wuadrant pain- not as painful as the day of admission Physical Exam Vital signs: Vital Signs 02/10/18 20:00 02/11/18 00:00 02/11/18 00:10 Temperature 97.5 F L 97.5 F L Pulse Rate 57 L 59 L Respiratory Rate 16 16 Blood Pressure 104/55 L 95/50 L Pulse Oximetry 95 95 95 02/11/18 04:00 02/11/18 08:00 02/11/18 12:00 Temperature 97.8 F 98.0 F 98.0 F Pulse Rate 53 L 56 L 56 L Respiratory Rate 16 15 14 Blood Pressure 95/56 L 93/56 L 103/65 Pulse Oximetry 97 94 L 98 Intake & Output 02/10/18 02/11/18 02/11/18 18:59 06:59 18:59 Intake Total 1100 / 1100 2500 / 2500 Balance 1100 / 1100 2500 / 2500 Weight 72.575 kg 78.4 kg Intake: IV 1100 / 1100 2500 / 2500 LR 1000 mL Inj 1,000 ML @ 100 1000 / 1000 900 / 900 mls/hr IV.CONT .Q10H [facility] Rx#: [id number] NS Inj 1,000 ML @ 125 mls/hr IV 1000 / 1000 .CONT .Q8H [facility] Rx#:[id number] Cipro 400 MG/200 ML Inj 400 mg 200 / 200 In 200 ml @ 200 mls/hr IV.SIG Q12H [facility] Rx#:[id number] Flagyl 500 MG Inj 100 ML @ 100 100 / 100 100 / 100 mls/hr IV.SIG Q8H [facility] Rx#: [id number] Other: # Voids 1 Date of Last Bowel Movement 02/10/18 Narrative: awake and alert no acute distress anicteric lungs- clear regular rhythm abdomen- soft, good bowel sounds, no guarding + tenderness on deep palpation fo the left lower wuadrant area extremities no edema Results - Labs CBC & Chem 7: 02/11/18 07:06 02/11/18 07:06 Laboratory Results - last 24 hr 02/11/18 02/11/18 02/11/18 07:06 07:06 13:21 WBC 4.1 D RBC 3.76 L Hgb 11.6 Hct 34.0 L MCV 90.4 MCH 30.8 MCHC 34.1 RDW 13.6 Plt Count 207 MPV 8.0 PT INR APTT 27.3 Sodium 142 Potassium 3.7 Chloride 106 Carbon Dioxide 28.2 Anion Gap 8 BUN 11 Creatinine 0.78 Estimated GFR 74 L Random Glucose 87 Calcium 8.5 02/11/18 13:33 WBC RBC Hgb Hct MCV MCH MCHC RDW Plt Count MPV PT 10.3 INR 1.0 APTT Sodium Potassium Chloride Carbon Dioxide Anion Gap BUN Creatinine Estimated GFR Random Glucose Calcium - Imaging Impressions Abdomen/Pelvis CT 02/10/18 13:05 CONCLUSION: Assessment and Plan - Assessment (1) Diverticulitis of intestine with abscess without bleeding Code(s): K57.80 - Diverticulitis of intestine, part unspecified, with perforation and abscess without bleeding Status: Acute - Plan 62-year-old female with recurrent diverticulitis. she was set up to have surgery done 03/20 Symptoms are becoming more frequent and more severe came in yesterday with severe left loer quadrant pain Recurrent diverticulitis with possible early abscess on abdominal CT: - Continue IV antibiotics with ciprofloxacin and Flagyl. - Supportive care with IV fluid. Pain control. Keep n.p.o. - GS/ Dr. Wild ff along with us - IR consulted for drain placement DVT PPx: SCDs. Patient up and ambulating (1) Diverticulitis of intestine with abscess without bleeding Qualifiers: Diverticulitis site: large intestine Qualified Code(s): K57.20 - Diverticulitis of large intestine with perforation and abscess without bleeding
[2018-02-11] MEDS: Morphine Inj 4 MG/ML Vial IV.PUSH PRN (22:34)
[2018-02-12] MEDS: Ciprofloxacin 400 MG/200 ML 400 MG/200 ML PIGGYBACK IV.SIG SCH ×2 (03:29→16:46)
--- NOTE | 2018-02-12 08:08 | CT ---
EXAM DATE: 02/11/2018 4:39 PM EDT AGE/SEX: 62 years / Female INDICATIONS: Abdominal abscess drain. CLINICAL DATA: This is the patient's initial encounter. Patient reports that signs and symptoms have been present for 1 day and indicates a pain score of 4/10. MEDICAL/SURGICAL HISTORY: Diverticulitis. Hysterectomy. Cholecystectomy. Sigmoid resection. COMPARISON: No prior exams available for comparison. SEDATION TIME (min): 30 BIOPSY SITE: diverticular abscess. MEDICATION(S): 3 mg midazolam (Versed) IV 150 mcg fentanyl (Sublimaze) IV DEVICE(S): . micropuncture introducer FLUID: Total volume of 20 of clear, yellow fluid was removed. Fluid was sent to lab for ordered studies.. . . PROCEDURE : CT guided drainage of the left paracolic fluid collection Conscious sedation with continuous EKG and oximetry monitoring. The risks, benefits and alternatives to the procedure were explained and verbal and written consent w as obtained. Using automated exposure control and adjustment of the mA and/or kV according to patient size, radiation dose was kept as low as reasonably achievable to obtain optimal diagnostic quality i mages. The site was prepped in sterile fashion. Full sterile technique was used, including cap, ma sk, sterile gloves and gown and a large sterile sheet. Hand hygiene and 2% chlorhexidine and/or beta dine/alcohol prep was utilized per protocol for cutaneous antisepsis. The skin and subcutaneous tiss ues were infiltrated with local anesthetic solution. DICOM format image data is available electronic ally for review and comparison. Using CT guidance the prescribed site was localized. A micropuncture needle was passed into the left paracolic fluid collection and 20 cc of clear yellow fluid was aspirated. A guidewire was passed into the cavity of the fluid collection to confirm no communication with any other structure. No signific ant residual fluid was identified. Since the entire collection was aspirated and the fluid did not ap pear grossly infected no drainage catheter was placed. The patient tolerated the procedure well and there were no complications. The patient tolerated the procedure well and there were no complications. The patient was sent to post anesthesia recovery in s table condition. FINDINGS: After obtaining consent, successful complete aspiration of left paracolic fluid collection was perfor med with CT guidance. The fluid was sent to the laboratory for culture and sensitivity. The patient t olerated the procedure well without complications. 1. Uncomplicated CT guided aspiration of left paracolic fluid collection as described above. Electronically signed by: Michel Gunter MD 02/12/2018 8:07 AM EDT
--- NOTE | 2018-02-12 09:30 | P.PNGS ---
Subjective Patient reports: feels better (less pain, no fevers) Physical Exam Vital signs: Vital Signs 02/11/18 12:00 02/11/18 15:33 02/11/18 16:30 Temperature 98.0 F Pulse Rate 56 L 69 Respiratory Rate 14 20 Blood Pressure 103/65 105/58 L Pulse Oximetry 98 98 93 L 02/11/18 16:35 02/11/18 16:59 02/11/18 17:37 Temperature 97.4 F L 97.6 F Pulse Rate 67 59 L 64 Respiratory Rate 18 16 16 Blood Pressure 105/58 L 104/64 135/68 Pulse Oximetry 92 L 98 02/11/18 19:31 02/11/18 19:35 02/12/18 00:00 Temperature 98.3 F 98.2 F Pulse Rate 57 L 57 L Respiratory Rate 18 16 Blood Pressure 117/56 L 111/64 Pulse Oximetry 96 96 96 02/12/18 04:00 02/12/18 08:00 Temperature 97.7 F 98 F Pulse Rate 56 L Respiratory Rate 16 18 Blood Pressure 123/56 L 121/72 Pulse Oximetry 95 Intake & Output 02/11/18 02/12/18 02/12/18 18:59 06:59 18:59 Intake Total 3600 / 3600 100 / 100 1300 / 1300 Balance 3600 / 3600 100 / 100 1300 / 1300 Weight 78.8 kg Intake: IV 3600 / 3600 100 / 100 1300 / 1300 LR 1000 mL Inj 1,000 ML @ 100 1900 / 1900 1000 / 1000 mls/hr IV.CONT .Q10H [facility] Rx#: [id number] NS Inj 1,000 ML @ 125 mls/hr IV 1000 / 1000 .CONT .Q8H [facility] Rx#:[id number] Cipro 400 MG/200 ML Inj 400 mg 200 / 200 200 / 200 In 200 ml @ 200 mls/hr IV.SIG Q12H [facility] Rx#:[id number] Flagyl 500 MG Inj 100 ML @ 100 200 / 200 100 / 100 100 / 100 mls/hr IV.SIG Q8H [facility] Rx#: [id number] Other: # Voids 5 1 Date of Last Bowel Movement 02/11/18 # Bowel Movements 1 - Routine Respiratory Exam Present: CTA bilaterally - Routine Cardiovascular Exam Present: RRR - Routine Abdominal Exam Present: soft (LLQ pain, no rebound no guarding) Assessment and Plan - Plan recurrent diverticulitis PLAN Will start clear diet pending wbc abd exams, attempt non op tx abx encourage oob
[2018-02-12 11:07] LABS: Baso % (Auto) 0.8 % (0.0-2.0); Eos # (Auto) 0.2 th/mm3 (0.0-0.4); Eos % (Auto) 4.7 % (0.0-4.0); Hematocrit 37.6 % (35.0-46.0); Hemoglobin 12.6 gm/dL (11.6-15.3); Lymph # (Auto) 1.7 th/mm3 (1.0-4.8); Lymph % (Auto) 34.3 % (9.0-44.0); Mean Corpuscular HGB Conc 33.6 % (32.0-36.0); Mean Corpuscular Hemoglobin 30.2 pg (27.0-34.0); Mean Corpuscular Volume 90.1 fL (80.0-100.0); Mean Platelet Volume 7.9 fL (7.0-11.0); Mono # (Auto) 0.2 th/mm3 (0.0-0.9); Neut # (Auto) 2.7 th/mm3 (1.8-7.7); Neut % (Auto) 55.2 % (16.0-70.0); Platelet Count 228 th/mm3 (150-450); Red Blood Count 4.18 mil/mm3 (4.00-5.30); Red Cell Distribution Width 13.5 % (11.6-17.2); White Blood Count 4.9 th/mm3 (4.0-11.0)
[2018-02-12 11:30] LABS: Calcium 8.6 mg/dL (8.5-10.1); Carbon Dioxide 28.4 meq/L (21.0-32.0); Potassium 3.6 meq/L (3.5-5.1)
--- NOTE | 2018-02-12 12:25 | P.PN ---
Subjective Interval history: toerating clear still with left lower quadrant pain Physical Exam Vital signs: Vital Signs 02/11/18 15:33 02/11/18 16:30 02/11/18 16:35 Temperature 97.4 F L Pulse Rate 69 67 Respiratory Rate 20 18 Blood Pressure 105/58 L 105/58 L Pulse Oximetry 98 93 L 92 L 02/11/18 16:59 02/11/18 17:37 02/11/18 19:31 Temperature 97.6 F 98.3 F Pulse Rate 59 L 64 57 L Respiratory Rate 16 16 18 Blood Pressure 104/64 135/68 117/56 L Pulse Oximetry 98 96 02/11/18 19:35 02/12/18 00:00 02/12/18 04:00 Temperature 98.2 F 97.7 F Pulse Rate 57 L 56 L Respiratory Rate 16 16 Blood Pressure 111/64 123/56 L Pulse Oximetry 96 96 02/12/18 08:00 Temperature 98 F Pulse Rate Respiratory Rate 18 Blood Pressure 121/72 Pulse Oximetry 95 Intake & Output 02/11/18 02/12/18 02/12/18 18:59 06:59 18:59 Intake Total 3600 / 3600 100 / 100 1300 / 1300 Balance 3600 / 3600 100 / 100 1300 / 1300 Weight 78.8 kg Intake: IV 3600 / 3600 100 / 100 1300 / 1300 LR 1000 mL Inj 1,000 ML @ 100 1900 / 1900 1000 / 1000 mls/hr IV.CONT .Q10H [facility] Rx#: [id number] NS Inj 1,000 ML @ 125 mls/hr IV 1000 / 1000 .CONT .Q8H [facility] Rx#:[id number] Cipro 400 MG/200 ML Inj 400 mg 200 / 200 200 / 200 In 200 ml @ 200 mls/hr IV.SIG Q12H [facility] Rx#:[id number] Flagyl 500 MG Inj 100 ML @ 100 200 / 200 100 / 100 100 / 100 mls/hr IV.SIG Q8H [facility] Rx#: [id number] Other: # Voids 5 1 Date of Last Bowel Movement 02/11/18 # Bowel Movements 1 Narrative: awake and alert no acute distress anicteric lungs- clear regular rhythm abdomen- soft, good bowel sounds, no guarding still with +direct tenderness on deep palpation fo the left lower quadrant area extremities no kena Results - Labs CBC & Chem 7: 02/12/18 10:27 02/12/18 10:27 Laboratory Results - last 24 hr 02/11/18 02/11/18 02/12/18 13:21 13:33 10:27 WBC 4.9 RBC 4.18 Hgb 12.6 Hct 37.6 MCV 90.1 MCH 30.2 MCHC 33.6 RDW 13.5 Plt Count 228 MPV 7.9 Neut % (Auto) 55.2 Lymph % (Auto) 34.3 Hyde % (Auto) 5.0 Eos % (Auto) 4.7 H Baso % (Auto) 0.8 Neut # (Auto) 2.7 Lymph # (Auto) 1.7 Hyde # (Auto) 0.2 Eos # (Auto) 0.2 Baso # (Auto) 0.0 WBC Differential . Differential Comment Auto diff final PT 10.3 INR 1.0 APTT 27.3 Sodium Potassium Chloride Carbon Dioxide Anion Gap BUN Creatinine Estimated GFR Random Glucose Calcium 02/12/18 10:27 WBC RBC Hgb Hct MCV MCH MCHC RDW Plt Count MPV Neut % (Auto) Lymph % (Auto) Hyde % (Auto) Eos % (Auto) Baso % (Auto) Neut # (Auto) Lymph # (Auto) Hyde # (Auto) Eos # (Auto) Baso # (Auto) WBC Differential Differential Comment PT INR APTT Sodium 141 Potassium 3.6 Chloride 103 Carbon Dioxide 28.4 Anion Gap 10 BUN 10 Creatinine 0.73 Estimated GFR 80 L Random Glucose 83 Calcium 8.6 Microbiology 02/11/18 16:08 Fluid - Peritoneal fluid Gram Stain - Final - Imaging Impressions Needle Aspiration CT 02/11/18 00:00 CONCLUSION: Assessment and Plan - Assessment (1) Diverticulitis of intestine with abscess without bleeding Code(s): K57.80 - Diverticulitis of intestine, part unspecified, with perforation and abscess without bleeding Status: Acute - Plan 62-year-old female with recurrent diverticulitis. she was set up to have surgery done 03/20 Symptoms are becoming more frequent and more severe came in yesterday with severe left loer quadrant pain Recurrent diverticulitis with possible early abscess on abdominal CT S/P CT drainage 02/11- no drain placed - Continue IV antibiotics with ciprofloxacin and Flagyl. - Supportive care with IV fluid. Pain control. started on clears - GS/ Dr. Wild ff along with us - DVT PPx: SCDs. Patient up and ambulating (1) Diverticulitis of intestine with abscess without bleeding Qualifiers: Diverticulitis site: large intestine Qualified Code(s): K57.20 - Diverticulitis of large intestine with perforation and abscess without bleeding
[2018-02-12] MEDS: Morphine Inj 4 MG/ML Vial IV.PUSH PRN (22:43)
[2018-02-13] MEDS: Ciprofloxacin 400 MG/200 ML 400 MG/200 ML PIGGYBACK IV.SIG SCH (04:30)
[2018-02-13 09:13] LABS: Baso % (Auto) 0.9 % (0.0-2.0); Eos # (Auto) 0.2 th/mm3 (0.0-0.4); Eos % (Auto) 4.7 % (0.0-4.0); Hematocrit 36.1 % (35.0-46.0); Hemoglobin 12.4 gm/dL (11.6-15.3); Lymph # (Auto) 1.9 th/mm3 (1.0-4.8); Lymph % (Auto) 41.7 % (9.0-44.0); Mean Corpuscular HGB Conc 34.4 % (32.0-36.0); Mean Corpuscular Hemoglobin 31.1 pg (27.0-34.0); Mean Corpuscular Volume 90.4 fL (80.0-100.0); Mean Platelet Volume 7.9 fL (7.0-11.0); Mono # (Auto) 0.3 th/mm3 (0.0-0.9); Neut # (Auto) 2.1 th/mm3 (1.8-7.7); Neut % (Auto) 46.7 % (16.0-70.0); Platelet Count 227 th/mm3 (150-450); Red Blood Count 3.99 mil/mm3 (4.00-5.30); Red Cell Distribution Width 13.6 % (11.6-17.2); White Blood Count 4.5 th/mm3 (4.0-11.0)
[2018-02-13 09:32] LABS: Calcium 8.5 mg/dL (8.5-10.1); Carbon Dioxide 28.6 meq/L (21.0-32.0); Potassium 3.8 meq/L (3.5-5.1)
--- NOTE | 2018-02-13 10:13 | P.PNGS ---
Subjective Patient reports: feels better, pain is less, afebrile Physical Exam Vital signs: Vital Signs 02/12/18 12:00 02/12/18 16:00 02/12/18 20:44 Temperature 97.8 F 98.5 F 98.1 F Pulse Rate 62 67 64 Respiratory Rate 16 16 18 Blood Pressure 122/71 119/63 114/66 Pulse Oximetry 100 95 96 02/12/18 22:47 02/13/18 00:00 02/13/18 04:00 Temperature 97.8 F 97.7 F Pulse Rate 56 L 51 L Respiratory Rate 18 16 18 Blood Pressure 107/68 118/68 Pulse Oximetry 97 95 02/13/18 08:00 Temperature 97.9 F Pulse Rate 50 L Respiratory Rate 14 Blood Pressure 114/61 Pulse Oximetry 96 Intake & Output 02/12/18 02/13/18 02/13/18 18:59 06:59 18:59 Intake Total 2600 / 2600 1300 / 1300 Balance 2600 / 2600 1300 / 1300 Weight 78 kg Intake: IV 2600 / 2600 1300 / 1300 LR 1000 mL Inj 1,000 ML @ 100 2000 / 2000 1000 / 1000 mls/hr IV.CONT .Q10H [facility] Rx#: [id number] Cipro 400 MG/200 ML Inj 400 mg 400 / 400 200 / 200 In 200 ml @ 200 mls/hr IV.SIG Q12H [facility] Rx#:[id number] Flagyl 500 MG Inj 100 ML @ 100 200 / 200 100 / 100 mls/hr IV.SIG Q8H [facility] Rx#: [id number] Other: # Voids 2 Date of Last Bowel Movement 02/12/18 02/12/18 - Routine Abdominal Exam Present: soft Assessment and Plan - Assessment (1) Diverticulitis of intestine with abscess without bleeding Code(s): K57.80 - Diverticulitis of intestine, part unspecified, with perforation and abscess without bleeding Status: Acute - Plan switch to po abx and HL IV home tomorrow if doing well FU dr sargent in office (1) Diverticulitis of intestine with abscess without bleeding Qualifiers: Diverticulitis site: large intestine Qualified Code(s): K57.20 - Diverticulitis of large intestine with perforation and abscess without bleeding
[2018-02-13] MEDS ORDERED: Morphine Inj 4 MG/ML Vial IV.PUSH PRN (10:49)
--- NOTE | 2018-02-13 10:55 | P.PN ---
Subjective Interval history: some loose stools, non bloody tolerating current diet well pain much much better per patient Physical Exam Vital signs: Vital Signs 02/12/18 12:00 02/12/18 16:00 02/12/18 20:44 Temperature 97.8 F 98.5 F 98.1 F Pulse Rate 62 67 64 Respiratory Rate 16 16 18 Blood Pressure 122/71 119/63 114/66 Pulse Oximetry 100 95 96 02/12/18 22:47 02/13/18 00:00 02/13/18 04:00 Temperature 97.8 F 97.7 F Pulse Rate 56 L 51 L Respiratory Rate 18 16 18 Blood Pressure 107/68 118/68 Pulse Oximetry 97 95 02/13/18 08:00 Temperature 97.9 F Pulse Rate 50 L Respiratory Rate 14 Blood Pressure 114/61 Pulse Oximetry 96 Intake & Output 02/12/18 02/13/18 02/13/18 18:59 06:59 18:59 Intake Total 2600 / 2600 1300 / 1300 Balance 2600 / 2600 1300 / 1300 Weight 78 kg Intake: IV 2600 / 2600 1300 / 1300 LR 1000 mL Inj 1,000 ML @ 100 2000 / 2000 1000 / 1000 mls/hr IV.CONT .Q10H [facility] Rx#: [id number] Cipro 400 MG/200 ML Inj 400 mg 400 / 400 200 / 200 In 200 ml @ 200 mls/hr IV.SIG Q12H [facility] Rx#:[id number] Flagyl 500 MG Inj 100 ML @ 100 200 / 200 100 / 100 mls/hr IV.SIG Q8H [facility] Rx#: [id number] Other: # Voids 2 Date of Last Bowel Movement 02/12/18 02/12/18 Narrative: awake and alert no acute distress anicteric lungs- clear regular rhythm abdomen- soft, good bowel sounds, no guarding, tenderness- much decreased- very mild on deep palpation extremities no edema Results - Labs CBC & Chem 7: 02/13/18 07:34 02/13/18 07:36 Laboratory Results - last 24 hr 02/12/18 02/12/18 02/13/18 10:27 10:27 07:34 WBC 4.9 4.5 RBC 4.18 3.99 L Hgb 12.6 12.4 Hct 37.6 36.1 MCV 90.1 90.4 MCH 30.2 31.1 MCHC 33.6 34.4 RDW 13.5 13.6 Plt Count 228 227 MPV 7.9 7.9 Neut % (Auto) 55.2 46.7 Lymph % (Auto) 34.3 41.7 [place] % (Auto) 5.0 6.0 Eos % (Auto) 4.7 H 4.7 H Baso % (Auto) 0.8 0.9 Neut # (Auto) 2.7 2.1 Lymph # (Auto) 1.7 1.9 [place] # (Auto) 0.2 0.3 Eos # (Auto) 0.2 0.2 Baso # (Auto) 0.0 0.0 WBC Differential . . Differential Comment Auto diff final Auto diff final Sodium 141 Potassium 3.6 Chloride 103 Carbon Dioxide 28.4 Anion Gap 10 BUN 10 Creatinine 0.73 Estimated GFR 80 L Random Glucose 83 Calcium 8.6 02/13/18 07:36 WBC RBC Hgb Hct MCV MCH MCHC RDW Plt Count MPV Neut % (Auto) Lymph % (Auto) [place] % (Auto) Eos % (Auto) Baso % (Auto) Neut # (Auto) Lymph # (Auto) [place] # (Auto) Eos # (Auto) Baso # (Auto) WBC Differential Differential Comment Sodium 140 Potassium 3.8 Chloride 106 Carbon Dioxide 28.6 Anion Gap 5 BUN 9 Creatinine 0.67 Estimated GFR 89 Random Glucose 89 Calcium 8.5 Microbiology 02/11/18 16:08 Fluid - Peritoneal fluid Gram Stain - Final 02/11/18 16:08 Fluid - Peritoneal fluid Body Fluid Culture - Preliminary No growth in 48 hours Assessment and Plan - Assessment (1) Diverticulitis of intestine with abscess without bleeding Code(s): K57.80 - Diverticulitis of intestine, part unspecified, with perforation and abscess without bleeding Status: Acute - Plan 62-year-old female with recurrent diverticulitis. she was set up to have surgery done 03/20 Symptoms are becoming more frequent and more severe came in yesterday with severe left loer quadrant pain Recurrent diverticulitis with possible early abscess on abdominal CT S/P CT drainage 02/11- no drain placed - Continue IV antibiotics with ciprofloxacin and Flagyl.- switched to po today by GS - Supportive care with IV fluid. Pain control. - GS/ Dr. Wild ff along with us - if stable possible DC tomorrow per GS - DVT PPx: SCDs. Patient up and ambulating (1) Diverticulitis of intestine with abscess without bleeding Qualifiers: Diverticulitis site: large intestine Qualified Code(s): K57.20 - Diverticulitis of large intestine with perforation and abscess without bleeding
[2018-02-13] MEDS: metroNIDAZOLE 500 MG Tablet PO SCH ×2 (13:51→23:12)
[2018-02-13] MEDS: Ciprofloxacin 500 MG Tablet PO SCH (20:18)
[2018-02-14] MEDS: metroNIDAZOLE 500 MG Tablet PO SCH ×2 (05:44→13:18)
[2018-02-14] MEDS: Ciprofloxacin 500 MG Tablet PO SCH (08:27)
--- NOTE | 2018-02-14 09:13 | P.PN ---
Subjective Interval history: pain better, no nause or vomiting + flatus wants to eat Physical Exam Vital signs: Vital Signs 02/13/18 12:00 02/13/18 16:00 02/13/18 20:00 Temperature 98.1 F 98.1 F 97.8 F Pulse Rate 53 L 62 58 L Respiratory Rate 16 18 18 Blood Pressure 110/66 117/66 147/74 H Pulse Oximetry 99 94 L 97 02/14/18 00:00 02/14/18 02:15 02/14/18 04:00 Temperature 97.5 F L 97.6 F Pulse Rate 132 H 53 L 55 L Respiratory Rate 18 17 18 Blood Pressure 101/60 136/74 114/63 Pulse Oximetry 98 96 94 L Intake & Output 02/13/18 02/14/18 02/14/18 18:59 06:59 18:59 Intake Total 1520 / 1520 Balance 1520 / 1520 Weight 78.4 kg Intake: IV 100 / 100 Flagyl 500 MG Inj 100 ML @ 100 100 / 100 mls/hr IV.SIG Q8H [facility] Rx#: [id number] Oral 1420 / 1420 Other: # Voids 5 2 Date of Last Bowel Movement 02/12/18 02/13/18 02/13/18 Narrative: awake and alert no acute distress anicteric lungs- clear regular rhythm abdomen- soft, good bowel sounds, no guarding,nontender extremities no edema Results - Labs CBC & Chem 7: 02/13/18 07:34 02/13/18 07:36 Laboratory Results - last 24 hr 02/13/18 02/13/18 07:34 07:36 WBC 4.5 RBC 3.99 L Hgb 12.4 Hct 36.1 MCV 90.4 MCH 31.1 MCHC 34.4 RDW 13.6 Plt Count 227 MPV 7.9 Neut % (Auto) 46.7 Lymph % (Auto) 41.7 [place] % (Auto) 6.0 Eos % (Auto) 4.7 H Baso % (Auto) 0.9 Neut # (Auto) 2.1 Lymph # (Auto) 1.9 [place] # (Auto) 0.3 Eos # (Auto) 0.2 Baso # (Auto) 0.0 WBC Differential . Differential Comment Auto diff final Sodium 140 Potassium 3.8 Chloride 106 Carbon Dioxide 28.6 Anion Gap 5 BUN 9 Creatinine 0.67 Estimated GFR 89 Random Glucose 89 Calcium 8.5 Microbiology 02/11/18 16:08 Fluid - Peritoneal fluid Gram Stain - Final 02/11/18 16:08 Fluid - Peritoneal fluid Body Fluid Culture - Final No growth in 72 hours (aerobically and anaerobically ) Assessment and Plan - Assessment (1) Diverticulitis of intestine with abscess without bleeding Code(s): K57.80 - Diverticulitis of intestine, part unspecified, with perforation and abscess without bleeding Status: Acute - Plan 62-year-old female with recurrent diverticulitis. she was set up to have surgery done 03/20 Symptoms are becoming more frequent and more severe came in yesterday with severe left loer quadrant pain Recurrent diverticulitis with possible early abscess on abdominal CT S/P CT drainage 02/11- no drain placed - Continue IV antibiotics with ciprofloxacin and Flagyl.- switched to po 02/13 - Supportive care with IV fluid. Pain control. - ADARSH/ Dr. Wild ff along with us - if stable DC today - OP ff up with Dr. Wild- per patient original plan was to have surgery Mar.24 - DC home if cleared by GS Patient up and ambulating (1) Diverticulitis of intestine with abscess without bleeding Qualifiers: Diverticulitis site: large intestine Qualified Code(s): K57.20 - Diverticulitis of large intestine with perforation and abscess without bleeding
[2018-02-14 10:27] VITALS: RESP 15
--- NOTE | 2018-02-14 11:37 | P.PNGS ---
Subjective Patient reports: feels better, pain is less (tolerating liquids, +bm, s no fevers) Physical Exam Vital signs: Vital Signs 02/13/18 12:00 02/13/18 16:00 02/13/18 20:00 Temperature 98.1 F 98.1 F 97.8 F Pulse Rate 53 L 62 58 L Respiratory Rate 16 18 18 Blood Pressure 110/66 117/66 147/74 H Pulse Oximetry 99 94 L 97 02/14/18 00:00 02/14/18 02:15 02/14/18 04:00 Temperature 97.5 F L 97.6 F Pulse Rate 132 H 53 L 55 L Respiratory Rate 18 17 18 Blood Pressure 101/60 136/74 114/63 Pulse Oximetry 98 96 94 L 02/14/18 08:00 Temperature 98.0 F Pulse Rate 60 Respiratory Rate 15 Blood Pressure 138/68 Pulse Oximetry 96 Intake & Output 02/13/18 02/14/18 02/14/18 18:59 06:59 18:59 Intake Total 1520 / 1520 Balance 1520 / 1520 Weight 78.4 kg Intake: IV 100 / 100 Flagyl 500 MG Inj 100 ML @ 100 100 / 100 mls/hr IV.SIG Q8H [facility] Rx#: [id number] Oral 1420 / 1420 Other: # Voids 5 2 Date of Last Bowel Movement 02/12/18 02/13/18 02/13/18 - Routine Abdominal Exam Present: soft (non tender, nondistended ) Assessment and Plan - Assessment (1) Diverticulitis of intestine with abscess without bleeding Code(s): K57.80 - Diverticulitis of intestine, part unspecified, with perforation and abscess without bleeding Status: Acute - Plan recurrent diverticulitis PLAN Will advance to soft diet abd exams, attempt non op tx abx change to po encourage oob ok to d/c from surgical stand point f/u as out pt will coordinate with GI as outpt (1) Diverticulitis of intestine with abscess without bleeding Qualifiers: Diverticulitis site: large intestine Qualified Code(s): K57.20 - Diverticulitis of large intestine with perforation and abscess without bleeding
[2018-02-14 14:16] VITALS: BP 121/70; PULSE 59; TEMP 98.4; O2SAT 93
--- NOTE | 2018-02-14 15:03 | P.DS ---
Date of admission: 02/10/18 16:33 Primary care physician: Christine Hare DO Anticipated date of discharge: 02/14/18 Brief History from admission: 62-year-old female with a medical history significant for recurrent diverticulitis. Patient reports she used to have bouts of diverticulitis about once or twice a year. However for the past few months she has been having recurrent episodes. She has been followed by GI and previously consulted with general surgery, Dr. Wild. In fact there were plans for surgery in March. However overnight, the patient woke up in severe left lower quadrant pain with associated nausea and vomiting. She also report fevers and chills last night. CT of the abdomen was done in the emergency room consistent with diverticulitis with possible early abscess. Currently the patient reports abdominal pain is improved. Nausea have significantly improved. DS: Diagnosis - Discharge Diagnosis (1) Diverticulitis of intestine with abscess without bleeding Status: Acute DS: Medications - Discharge Medications Prescriptions: RX: ciprofloxacin HCl 500 mg PO Q12HR 10 Days tab RX: metronidazole 500 mg PO Q8HR 10 Days tab DS: Summary Hospital Course: 62-year-old female with recurrent diverticulitis. she was set up to have surgery done 03/20 Symptoms are becoming more frequent and more severe came in yesterday with severe left loer quadrant pain Recurrent diverticulitis with possible early abscess on abdominal CT S/P CT drainage 02/11- no drain placed - Continue IV antibiotics with ciprofloxacin and Flagyl.- switched to po 02/13 - Supportive care with IV fluid. Pain control. - ADARSH/ Dr. Wild ff along with us - if stable DC today - OP ff up with Dr. Wild- per patient original plan was to have surgery Mar.24 - DC home today- cleared with GS Patient up and ambulating - Time Spent with Patient Total time spent providing and/or coordinating discharge services: Less than 30 minutes Exam Vital signs: Vital Signs 02/13/18 16:00 02/13/18 20:00 02/14/18 00:00 Temperature 98.1 F 97.8 F 97.5 F L Pulse Rate 62 58 L 132 H Respiratory Rate 18 18 18 Blood Pressure 117/66 147/74 H 101/60 Pulse Oximetry 94 L 97 98 02/14/18 02:15 02/14/18 04:00 02/14/18 08:00 Temperature 97.6 F 98.0 F Pulse Rate 53 L 55 L 60 Respiratory Rate 17 18 15 Blood Pressure 136/74 114/63 138/68 Pulse Oximetry 96 94 L 96 02/14/18 12:00 Temperature 98.4 F Pulse Rate 59 L Respiratory Rate 15 Blood Pressure 121/70 Pulse Oximetry 93 L Intake & Output 02/13/18 02/14/18 02/14/18 18:59 06:59 18:59 Intake Total 1520 / 1520 Balance 1520 / 1520 Weight 78.4 kg Intake: IV 100 / 100 Flagyl 500 MG Inj 100 ML @ 100 100 / 100 mls/hr IV.SIG Q8H [facility] Rx#: [id number] Oral 1420 / 1420 Other: # Voids 5 2 Date of Last Bowel Movement 02/12/18 02/13/18 02/13/18 Narrative: awake and alertlungs clear regular rhythm abdomen-soft good bowel sounds, no guarding, no rebound, nontender extremities o edema, Results Procedures completed during hospitalization: none - Impressions ITS Impressions Abdomen/Pelvis CT 02/10/18 13:05 CONCLUSION: Needle Aspiration CT 02/11/18 00:00 CONCLUSION: Discharge Plan - Discharge Disposition Patient Disposition: 01 Discharge Home - Discharge Condition Condition: Stable - Discharge Order Discharge Orders: Discharge Order (Routine); Ordered 02/14/18 Ordered By: Tanisha Cabrera - Physicians Team Primary Care Provider: Christine Hare Attending Provider: Tanisha Cabrera Other Providers: Thomas Best MD ; Surgeons,[facility]
== END 2018-02-14 16:21 | disposition home or self-care (01) ==
LOC: NEPD 09:37 → NEDA 16:33 → N05 18:20
PROVIDERS: ADMIT Internal Medicine; ATTEND Internal Medicine
DX: K57.20 Diverticulitis of large intestine with perforation and abscess without bleeding